=== PATIENT | female | born 1935 | race Caucasian/White ===

== ENCOUNTER 2019-04-05 09:58 | Observation (INO) | payer MEDICARE, BC ==
[~2019-04-05 09:58] MED LIST: CEFAZOLIN 1 GM INJ; EPHEDrine 25 MG/5 ML SYG; GLYCOPYRROLATE 0.4 MG INJ; NEOSTIGMINE 3 MG/3 ML SYRINGE; SEVOFLURANE 15 MIN
[2019-04-05] MEDS ORDERED: GELATIN SIZE 100 SPONGE ×2 (12:01→15:52)
[2019-04-05] MEDS ORDERED: THROMBIN 5000 UNIT VIAL (12:09)
[2019-04-05] MEDS ORDERED: ONDANSETRON 4 MG INJ (13:02)
[2019-04-05] MEDS ORDERED: DEXAMETHASONE 4 MG/ML 5 ML INJ (13:02)
[2019-04-05] MEDS ORDERED: FAMOTIDINE 20 MG INJ (13:02)
[2019-04-05] MEDS ORDERED: LIDOCAINE 2% (SDV) 5 ML INJ (13:03)
[2019-04-05] MEDS ORDERED: PROPOFOL 20 ML (13:03)
[2019-04-05] MEDS ORDERED: ROCURONIUM 50 MG INJ (13:03)
[2019-04-05] MEDS ORDERED: SUCCINYLCHOLINE CHLORIDE 100 MG/5 ML SYG IV (13:03)
[2019-04-05] MEDS ORDERED: EPHEDrine 25 MG/5 ML SYG ×2 (13:05→16:36)
[2019-04-05] MEDS: POLYMYXIN/BACITRACIN 1L IRRIG (13:14)
[2019-04-05] MEDS: BUPIVACAINE 0.5%/EPI (SDV) 30 ML INJ (13:14)
[2019-04-05] MEDS ORDERED: GLYCOPYRROLATE 0.4 MG INJ (16:24)
[2019-04-05] MEDS ORDERED: NEOSTIGMINE 3 MG/3 ML SYRINGE (16:24)
[2019-04-05] MEDS ORDERED: NALOXONE (0.4 MG/ML) INJ IV (16:30)
[2019-04-05] MEDS ORDERED: ONDANSETRON 4 MG INJ IV ×2 (16:30→17:00)
[2019-04-05] MEDS ORDERED: NACL 0.9% 3 ML SYG IV (16:30)
[2019-04-05] MEDS ORDERED: PROCHLORPERAZINE 10 MG TAB PO (16:30)
[2019-04-05] MEDS ORDERED: AL HYDROX/MG HYDROX/SIMETH 30 ML CUP PO (16:30)
[2019-04-05] MEDS ORDERED: HYDROCODONE/APAP (5/325) TAB PO ×2 (16:30)
[2019-04-05] MEDS ORDERED: HYDROmorphONE 0.5 MG/0.5 ML SYG IV (17:00)
[2019-04-05] MEDS ORDERED: MEPERIDINE 25 MG INJ IV (17:00)
[2019-04-05] MEDS ORDERED: PROCHLORPERAZINE 10 MG INJ IV (17:00)
[2019-04-05] MEDS ORDERED: DIPHENHYDRAMINE 50 MG INJ IV (17:00)
[2019-04-05] MEDS ORDERED: FENTAnyl 50 MCG/ML VIAL IV (17:00)
[2019-04-05] MEDS ORDERED: HYDROmorphONE 1 MG/5 ML IV SYRINGE IV ×3 (17:00)
[2019-04-05] MEDS: ACETAMINOPHEN 1000MG/100ML IV 100 ML IVPB (17:52)
[2019-04-05] MEDS: CEFAZOLIN 1 GM/50 ML (PMX) 50 ML IVPB (17:52)
[2019-04-05] MEDS: DEXTROSE 5%-0.45% NACL 1,000 ML IV (20:49)
[2019-04-06] MEDS: ACETAMINOPHEN 1000MG/100ML IV 100 ML IVPB (01:00)
[2019-04-06] MEDS: CEFAZOLIN 1 GM/50 ML (PMX) 50 ML IVPB ×3 (01:15→12:10)
[2019-04-06] MEDS: DEXTROSE 5%-0.45% NACL 1,000 ML IV ×3 (02:22→22:22)
[2019-04-06] MEDS: ACETAMINOPHEN 325 MG TAB PO ×2 (04:31→20:10)
[2019-04-06 05:41] LABS: HEMATOCRIT 27.5 % (37.0-47.0); HEMOGLOBIN 9.5 g/dl (12.0-16.0)
[2019-04-06 06:12] LABS: ANION GAP 11 (5-13); BLOOD UREA NITROGEN 21 mg/dl (7-20); CALCIUM 8.2 mg/dl (8.4-10.2); CARBON DIOXIDE 24 mmol/L (21-31); CHLORIDE 100 mmol/L (97-110); CREATININE 1.17 mg/dl (0.44-1.00); GLUCOSE 188 mg/dl (70-220); SODIUM 135 mmol/L (135-144)
[2019-04-06] MEDS: LEVOTHYROXINE 88 MCG TAB PO (06:13)
[2019-04-06] MEDS ORDERED: AMLODIPINE 5 MG TAB PO (09:00)
[2019-04-06] MEDS ORDERED: METOPROLOL (XL) 50 MG TAB PO (09:00)
[2019-04-06] MEDS: DOCUSATE SODIUM 100 MG CAP PO ×2 (09:31→20:09)
[2019-04-06] MEDS: LOSARTAN 50 MG TAB PO (09:31)
[2019-04-06 11:50] LABS: IRON 40 ug/dl (35-150)
[2019-04-06 11:59] LABS: % IRON SATURATION 16 % SAT (22-52); TOTAL IRON BINDING CAPACITY 258 ug/dl (241-421)
[2019-04-06] MEDS: METOPROLOL (XL) 50 MG TAB PO (12:13)
[2019-04-06 12:33] LABS: FERRITIN 35.9 ng/ml (11.1-264.0)
[2019-04-06] MEDS: AMLODIPINE 5 MG TAB PO (20:11)
[2019-04-06] MEDS: ATORVASTATIN 20 MG TAB PO (20:13)
[2019-04-06] MEDS ORDERED: NON-FORMULARY/PATIENT OWN MED (Simvastatin* (Zocor*) 40 MG) PO (21:00)
[2019-04-07] MEDS: DEXTROSE 5%-0.45% NACL 1,000 ML IV (00:06)
[2019-04-07 05:42] LABS: ADD MAN DIFF? NO
[2019-04-07 05:50] LABS: BASOPHILS % 0.2 % (0.0-2.0); HEMATOCRIT 28.7 % (37.0-47.0); HEMOGLOBIN 9.6 g/dl (12.0-16.0); LYMPHOCYTES # 2.3 10^3/ul (0.8-2.9); LYMPHOCYTES % 21.6 % (15.0-51.0); MEAN CORPUSCULAR HEMOGLOBIN 28.6 pg (29.0-33.0); MEAN CORPUSCULAR HGB CONC 33.4 g/dl (32.0-37.0); MEAN CORPUSCULAR VOLUME 85.4 fl (82.0-101.0); MEAN PLATELET VOLUME 10.7 fl (7.4-10.4); MONOCYTES % 9.4 % (0.0-11.0); NEUTROPHIL # 7.2 10^3/ul (1.6-7.5); NEUTROPHILS % 68.3 % (39.0-77.0); PLATELET COUNT 187 10^3/UL (140-415); RED BLOOD COUNT 3.36 10^6/ul (4.20-5.40); RED CELL DISTRIBUTION WIDTH 13.2 % (11.5-14.5)
[2019-04-07 05:50] LABS: WHITE BLOOD COUNT 10.5 10^3/ul (4.8-10.8)
[2019-04-07] MEDS: LEVOTHYROXINE 88 MCG TAB PO (06:07)
[2019-04-07 06:16] LABS: ALANINE AMINOTRANSFERASE 17 IU/L (13-69); ALBUMIN 3.3 g/dl (3.3-4.9); ALBUMIN/GLOBULIN RATIO 1.13; ALKALINE PHOSPHATASE 87 IU/L (42-121); ANION GAP 6 (5-13); ASPARTATE AMINO TRANSFERASE 20 IU/L (15-46); BILIRUBIN,INDIRECT 0.5 mg/dl (0-1.1); BILIRUBIN,TOTAL 0.5 mg/dl (0.2-1.3); BLOOD UREA NITROGEN 17 mg/dl (7-20); CALCIUM 8.5 mg/dl (8.4-10.2); CARBON DIOXIDE 29 mmol/L (21-31); CHLORIDE 101 mmol/L (97-110); GLUCOSE 132 mg/dl (70-220); SODIUM 136 mmol/L (135-144); TOTAL PROTEIN 6.2 g/dl (6.1-8.1)
[2019-04-07] MEDS: DOCUSATE SODIUM 100 MG CAP PO (08:14)
[2019-04-07] MEDS: POLYETHYLENE GLYCOL 17 GM PACKET PO (08:14)
[2019-04-07] MEDS: LOSARTAN 50 MG TAB PO (08:14)
[2019-04-07] MEDS: ACETAMINOPHEN 325 MG TAB PO (08:57)
[2019-04-07] MEDS: METOPROLOL (XL) 50 MG TAB PO (11:35)
== END 2019-04-07 11:53 | disposition home or self-care (01) ==
LOC: REC 09:58 → MS1 20:25
DX: M48.062 Spinal stenosis, lumbar region with neurogenic claudication (principal); M51.16 Intervertebral disc disorders with radiculopathy, lumbar region; M41.9 Scoliosis, unspecified; I10 Essential (primary) hypertension; E03.9 Hypothyroidism, unspecified; E78.5 Hyperlipidemia, unspecified; Z87.891 Personal history of nicotine dependence
CPT/HCPCS: 63030; 72114; 80048; 80053; 82728; 83540; 85014; 85018; 85025; 87086; 88304; 97116; 97162; 97530; 99217